=== PATIENT | male | born 1955 | race African-American/Black ===

== ENCOUNTER → 2020-03-16 | Outpatient (CLI) | payer OTHER | END | disposition home or self-care (01) | LOC: TOM 16:40 | DX: M51.37 Other intervertebral disc degeneration, lumbosacral region (principal); S34.109A Unspecified injury to unspecified level of lumbar spinal cord, initial encounter; S34.139A Unspecified injury to sacral spinal cord, initial encounter ==

== ENCOUNTER 2025-01-09 13:02 | Outpatient (CLI) | payer OTHER | END 2025-01-09 13:17 | disposition home or self-care (01) | LOC: TOM 13:02 | DX: R10.20 Pelvic and perineal pain unspecified side (principal) ==